=== PATIENT | male | born 1965 ===

== ENCOUNTER 2024-10-23 11:44 | Outpatient (CLI) | payer OTHER | END 2024-10-23 11:53 | disposition home or self-care (01) | LOC: SONOGRAMA 11:44 | PROVIDERS: ATTEND Physical Medicine & Rehabilitation | DX: S46.011A Strain of muscle(s) and tendon(s) of the rotator cuff of right shoulder, initial encounter (principal); S09.11XA Strain of muscle and tendon of head, initial encounter ==